=== PATIENT | female | born 1975 | race American Indian/Alaskan Native ===

== ENCOUNTER 2016-06-22 13:11 | Emergency (ER) | payer BC, OTHER ==
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
[2016-06-22] MEDS ORDERED: MOTRIN PO ONE (20:03)
[2016-06-22] MEDS ORDERED: FLEXERIL PO ONE (20:03)
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
[2016-06-22 21:06] VITALS: BP 111/74
== END 2016-06-22 20:28 | disposition home or self-care (01) ==
LOC: ED 13:11
DX: M79.1 Myalgia (principal); M54.2 Cervicalgia; F17.200 Nicotine dependence, unspecified, uncomplicated; V43.52XA Car driver injured in collision with other type car in traffic accident, initial encounter; Y93.9 Activity, unspecified; Y99.9 Unspecified external cause status; Y92.410 Unspecified street and highway as the place of occurrence of the external cause
CPT/HCPCS: 99283

== ENCOUNTER 2017-06-02 16:09 | Emergency (ER) | payer MEDICAID, OTHER ==
[2017-06-02 19:25] LABS: Bilirubin,Urine NEG (Negative); Blood,Urine NEG (Negative); Color,Urine Yellow (Yellow); Protein,Urine <15 mg/dL mg/dL (Negative); Urobilinogen,Urine < 2.0 mg/dL (<2.0)
--- NOTE | 2017-06-02 21:38 | Emergency Department Report ---
Chief Complaint: Abdominal Pain Stated Complaint: ABDOMINAL PAINS - HPI History of Present Illness: 42-year-old female presents with a 3 to four-day history of lower abdominal discomfort. His associated with some vaginal discharge. She has a past medical history of herpes simplex and has had a previous appendectomy. No treatment attempted. No fever, vaginal bleeding, dysuria, nausea, vomiting. No recent travel or sick contacts at home. Asking for antiviral treatments for her herpes simplex. - ROS Review of Systems: Positive for abdominal pain and vaginal discharge Negative for fever, dysuria, vaginal bleeding, back pain, nausea, vomiting, chest pain or shortness of breath - Exam Vital Signs: Vital Signs 06/02/17 16:33 Temperature 98.4 F Pulse Rate 76 Respiratory 16 Rate Blood Pressure 131/81 O2 Sat by Pulse 100 Oximetry MSE screening note: Focused history and physical exam performed. Due to findings the following was ordered: I have ordered a CBC, CMP, urinalysis, urine and abdominal x-ray. She will be seen by the mid-level provider and will remain on the fast track side for now. ED Disposition for MSE Condition: Stable Instructions: Abdominal Pain (ED)
[2017-06-02 21:48] VITALS: BP 128/56
[2017-06-02 21:52] LABS: Eosinophils # (Auto) 0.1 K/mm3 (0.0-0.4); Eosinophils % (Auto) 3.2 % (0.0-4.3); Hematocrit 33.6 % (30.3-42.9); Hemoglobin 10.6 gm/dl (10.1-14.3); Lymphocytes # (Auto) 1.2 K/mm3 (1.2-5.4); Lymphocytes % (Auto) 36.9 % (13.4-35.0); Mean Corpuscular HGB Conc 32 % (30-34); Mean Corpuscular Hemoglobin 26 pg (28-32); Mean Corpuscular Volume 83 fl (79-97); Monocytes # (Auto) 0.4 K/mm3 (0.0-0.8); Monocytes % (Auto) 12.9 % (0.0-7.3); Platelet Count 223 K/mm3 (140-440); Red Blood Count 4.06 M/mm3 (3.65-5.03); Red Cell Distribution Width 15.7 % (13.2-15.2)
[2017-06-02 22:09] LABS: Alanine Aminotransferase 10 units/L (7-56); Albumin 4.6 g/dL (3.9-5); BUN/Creatinine Ratio 6; Blood Urea Nitrogen 3 mg/dL (7-17); Calcium 9.4 mg/dL (8.4-10.2); Hemolysis Index 21
--- NOTE | 2017-06-02 22:16 | Emergency Department Report ---
ED Abdominal Pain HPI - General Chief Complaint: Abdominal Pain Stated Complaint: ABDOMINAL PAINS Time Seen by Provider: 06/02/17 22:14 Source: patient Mode of arrival: Ambulatory Limitations: No Limitations - History of Present Illness Initial Comments: Patient reports that she did have an abdominal cramps pointing to her periumbilical area. Patient reports that she was having pain in triage at her pelvic area. She said the pain is around her navel and describes pain as crampy and 5 out of 10. Patient states she is currently on her menses. She says she has not a bowel movement for 3 days and this is her regular pattern and she thinks she is constipated. Denies any nausea or vomiting. Denies any fever or chills. Denies any urinary burning frequency or urgency. Denies any back pain. Denies any chest pain or shortness of breath. [id number] pain medication did not help patient reports that she is eating okay and tolerating liquids okay. Abdominal cramping comes and goes. MD Complaint: abdominal pain Onset/Timin -: days(s) Location: periumbilical Radiation: none Migration to: no migration Severity: moderate Severity scale (0 -10): 5 Quality: cramping Consistency: intermittent Improves With: nothing Worsens With: nothing Context: other (constipation) Associated Symptoms: constipation. denies: nausea, vomiting, diarrhea, fever, chills, dysuria, hematemesis, hematochezia, melena, hematuria, anorexia, syncope Treatments Prior to Arrival: other ([id number] pain medication) - Related Data Previous Rx's Medication Instructions Recorded Last Taken Type Amoxicillin [Trimox CAP] 500 mg PO Q8H #30 capsule 12/08/[address] [Voltaren Dr] 75 mg PO Q12H #30 tablet 12/08/14 Unknown Rx traMADol [Ultram 50 MG tab] 50 mg PO Q6HR PRN #20 tablet 12/08/14 Unknown Rx Ketorolac [Toradol] 10 mg PO Q6H PRN #20 tablet 01/11/16 Unknown Rx Methocarbamol [Robaxin TAB] 1,500 mg PO TID PRN #30 tab 01/11/16 Unknown Rx Cyclobenzaprine [Flexeril] 10 mg PO TID PRN #24 tablet 06/22/16 Unknown Rx Ibuprofen [Motrin] 800 mg PO Q8HR PRN #30 tablet 06/22/16 Unknown Rx Magnesium Citrate [Citrate of 300 ml PO ONCE 1 Days #1 bottle 06/02/17 Unknown Rx Magnesia] Sodium Phosphate,[place]-Dibasic 118 ml RC ONCE 1 Days #1 enema 06/02/17 Unknown Rx [Fleet Enema] Allergies Allergy/AdvReac Type Severity Reaction Status Date / Time No Known Allergies Allergy Verified 12/08/14 08:35 ED Review of Systems ROS: Stated complaint: ABDOMINAL PAINS Other details as noted in HPI Comment: All other systems reviewed and negative Constitutional: no symptoms reported Eyes: denies: eye pain, eye discharge, vision change ENT: denies: ear pain, throat pain Respiratory: no symptoms reported Cardiovascular: denies: chest pain, palpitations, dyspnea on exertion, orthopnea , edema, syncope, paroxysmal nocturnal dyspnea Gastrointestinal: abdominal pain, constipation. denies: nausea, vomiting, diarrhea, hematemesis, melena, hematochezia Genitourinary: denies: urgency, dysuria, frequency, hematuria, discharge, abnormal menses, dyspareunia Musculoskeletal: denies: back pain, joint swelling, arthralgia, myalgia Skin: denies: rash Neurological: denies: headache, weakness, numbness, paresthesias, confusion, abnormal gait, vertigo ED Past Medical Hx - Past Medical History Previous Medical History?: No - Surgical History Past Surgical History?: Yes Hx Appendectomy: Yes - Family History Family history: hypertension - Social History Smoking Status: Current Every Day Smoker Substance Use Type: None - Medications Home Medications: Home Medications Medication Instructions Recorded Confirmed Last Taken Type Amoxicillin [Trimox CAP] 500 mg PO Q8H #30 capsule 12/08/[address] [Voltaren Dr] 75 mg PO Q12H #30 tablet 12/08/14 Unknown Rx traMADol [Ultram 50 MG tab] 50 mg PO Q6HR PRN #20 tablet 12/08/14 Unknown Rx Ketorolac [Toradol] 10 mg PO Q6H PRN #20 tablet 01/11/16 Unknown Rx Methocarbamol [Robaxin TAB] 1,500 mg PO TID PRN #30 tab 01/11/16 Unknown Rx Cyclobenzaprine [Flexeril] 10 mg PO TID PRN #24 tablet 06/22/16 Unknown Rx Ibuprofen [Motrin] 800 mg PO Q8HR PRN #30 tablet 06/22/16 Unknown Rx Magnesium Citrate [Citrate of 300 ml PO ONCE 1 Days #1 bottle 06/02/17 Unknown Rx Magnesia] Sodium Phosphate,[place]-Dibasic 118 ml RC ONCE 1 Days #1 enema 06/02/17 Unknown Rx [Fleet Enema] ED Physical Exam - General Limitations: No Limitations General appearance: alert, in no apparent distress - Head Head exam: Present: atraumatic, normocephalic, normal inspection - Eye Eye exam: Present: normal appearance, PERRL, EOMI Pupils: Present: normal accommodation - ENT ENT exam: Present: normal exam, normal orophraynx, mucous membranes moist - Neck Neck exam: Present: normal inspection, full ROM, other (no C-spine tenderness). Absent: tenderness, meningismus, lymphadenopathy, thyromegaly - Respiratory Respiratory exam: Present: normal lung sounds bilaterally. Absent: respiratory distress, chest wall tenderness - Cardiovascular Cardiovascular Exam: Present: regular rate, normal rhythm, normal heart sounds. Absent: systolic murmur, diastolic murmur - GI/Abdominal GI/Abdominal exam: Present: soft, distended (bloated), normal bowel sounds. Absent: tenderness, guarding, rebound, rigid, organomegaly, mass, bruit, pulsatile mass, hernia - Extremities Exam Extremities exam: Present: normal inspection, full ROM, normal capillary refill , other (no clubbing, cyanosis or edema. +2 pulses + extremities and no neurovascular compromise). Absent: tenderness, pedal edema, joint swelling, calf tenderness - Back Exam Back exam: Present: normal inspection, full ROM, other (ambulates without any difficulties). Absent: tenderness, CVA tenderness (R), CVA tenderness (L), muscle spasm, paraspinal tenderness, vertebral tenderness, rash noted - Neurological Exam Neurological exam: Present: alert, oriented X3, normal gait, reflexes normal. Absent: motor sensory deficit - Psychiatric Psychiatric exam: Present: normal affect, normal mood - Skin Skin exam: Present: warm, dry, intact, normal color. Absent: rash ED Course Vital Signs 06/02/17 06/02/17 16:33 21:44 Temperature 98.4 F 98.2 F Pulse Rate 76 68 Respiratory 16 16 Rate Blood Pressure 131/81 128/56 O2 Sat by Pulse 100 100 Oximetry - Reevaluation(s) Reevaluation #1: 06/02/17 22:31 Patient is stable. Tender to palpate the periumbilical area. Lab work is stable. Await in urine hCG and KUB. Reevaluation #2: 06/02/17 23:49 Patient's stable. She has no abdominal pain at present. ED Medical Decision Making - Lab Data Result diagrams: 06/02/17 21:49 06/02/17 21:49 Lab Results 06/02/17 06/02/17 06/02/17 Range/Units 21:36 21:49 21:49 WBC 3.4 L (4.5-11.0) K/mm3 RBC 4.06 (3.65-5.03) M/mm3 Hgb 10.6 (10.1-14.3) gm/dl Hct 33.6 (30.3-42.9) % MCV 83 (79-97) fl MCH 26 L (28-32) pg MCHC 32 (30-34) % RDW 15.7 H (13.2-15.2) % Plt Count 223 (140-440) K/mm3 Lymph % (Auto) 36.9 H (13.4-35.0) % [place] % (Auto) 12.9 H (0.0-7.3) % Eos % (Auto) 3.2 (0.0-4.3) % Baso % (Auto) 1.0 (0.0-1.8) % Lymph # 1.2 (1.2-5.4) K/mm3 [place] # 0.4 (0.0-0.8) K/mm3 Eos # 0.1 (0.0-0.4) K/mm3 Baso # 0.0 (0.0-0.1) K/mm3 Seg Neutrophils % 46.0 (40.0-70.0) % Seg Neutrophils # 1.5 L (1.8-7.7) K/mm3 Sodium 137 (137-145) mmol/L Potassium 4.0 (3.6-5.0) mmol/L Chloride 98.9 (98-107) mmol/L Carbon Dioxide 26 (22-30) mmol/L Anion Gap 16 mmol/L BUN 3 L (7-17) mg/dL Creatinine 0.5 L (0.7-1.2) mg/dL Estimated GFR > 60 ml/min BUN/Creatinine Ratio 6 % Glucose 81 (65-100) mg/dL Calcium 9.4 (8.4-10.2) mg/dL Total Bilirubin 0.60 (0.1-1.2) mg/dL AST 21 (5-40) units/L ALT 10 (7-56) units/L Alkaline Phosphatase 69 (35-129) units/L Total Protein 8.1 (6.3-8.2) g/dL Albumin 4.6 (3.9-5) g/dL Albumin/Globulin Ratio 1.3 % Lipase (13-60) units/L Urine Color (Yellow) Urine Turbidity (Clear) Urine pH (5.0-7.0) Ur Specific [place] (1.003-1.030) Urine Protein (Negative) mg/dL Urine Glucose (UA) (Negative) mg/dL Urine Ketones (Negative) mg/dL Urine Blood (Negative) Urine Nitrite (Negative) Urine Bilirubin (Negative) Urine Urobilinogen (<2.0) mg/dL Ur Leukocyte Esterase (Negative) Urine WBC (Auto) (0.0-6.0) /HPF Urine RBC (Auto) (0.0-6.0) /HPF U Epithel Cells (Auto) (0-13.0) /HPF Urine HCG, Qual Negative (Negative) 06/02/17 06/02/17 Range/Units Unknown Unknown WBC (4.5-11.0) K/mm3 RBC (3.65-5.03) M/mm3 Hgb (10.1-14.3) gm/dl Hct (30.3-42.9) % MCV (79-97) fl MCH (28-32) pg MCHC (30-34) % RDW (13.2-15.2) % Plt Count (140-440) K/mm3 Lymph % (Auto) (13.4-35.0) % [place] % (Auto) (0.0-7.3) % Eos % (Auto) (0.0-4.3) % Baso % (Auto) (0.0-1.8) % Lymph # (1.2-5.4) K/mm3 [place] # (0.0-0.8) K/mm3 Eos # (0.0-0.4) K/mm3 Baso # (0.0-0.1) K/mm3 Seg Neutrophils % (40.0-70.0) % Seg Neutrophils # (1.8-7.7) K/mm3 Sodium (137-145) mmol/L Potassium (3.6-5.0) mmol/L Chloride (98-107) mmol/L Carbon Dioxide (22-30) mmol/L Anion Gap mmol/L BUN (7-17) mg/dL Creatinine (0.7-1.2) mg/dL Estimated GFR ml/min BUN/Creatinine Ratio % Glucose (65-100) mg/dL Calcium (8.4-10.2) mg/dL Total Bilirubin (0.1-1.2) mg/dL AST (5-40) units/L ALT (7-56) units/L Alkaline Phosphatase (35-129) units/L Total Protein (6.3-8.2) g/dL Albumin (3.9-5) g/dL Albumin/Globulin Ratio % Lipase 27 (13-60) units/L Urine Color Yellow (Yellow) Urine Turbidity Clear (Clear) Urine pH 6.0 (5.0-7.0) Ur Specific [place] 1.004 (1.003-1.030) Urine Protein <15 mg/dl (Negative) mg/dL Urine Glucose (UA) Neg (Negative) mg/dL Urine Ketones Neg (Negative) mg/dL Urine Blood Neg (Negative) Urine Nitrite Neg (Negative) Urine Bilirubin Neg (Negative) Urine Urobilinogen < 2.0 (<2.0) mg/dL Ur Leukocyte Esterase Neg (Negative) Urine WBC (Auto) 1.0 (0.0-6.0) /HPF Urine RBC (Auto) 3.0 (0.0-6.0) /HPF U Epithel Cells (Auto) 2.0 (0-13.0) /HPF Urine HCG, Qual (Negative) - Radiology Data Radiology results: report reviewed Abdominal x-ray revealed nonspecific intestinal gas pattern. Bowel gas pattern is distributed predominantly in the nondistended colon and rectum. There is mild degree of residual stool. No pneumoperitoneum. No masses or calcifications seen. - Medical Decision Making ED course: Patient here complaining of abdominal cramp to her periumbilical area 3 days. She says she had not a bowel movement in 3 days. Patient said her diet is not very good she doesn't eat a lot of fruits and veggies and she also reports that she does not drink a lot of water. She says she does not have a bowel movement daily but when she goes she goes a lot. She said the last time she went was on 05/30/2017 and stool was normal and was very large. Patient has a history of appendectomy. She is afebrile and lab works are stable. test is negative urinalysis is normal. KUB without any obstruction and patient with intestinal gas that is distributed predominantly in the nondistended colon and rectum. Mild degree of residual stool. I discussed lab results and x-ray results patient and she was understanding. I also discussed fiber diet and that she needs to eat more fruits and veggies and increase her water intake. Patient discharged home in stable condition with prescription for Fleet enema and mag citrate. I discussed the fascial need to follow up with a panel raiser operator to manage chronic constipation. Patient says she does have a primary care physician and I told her that she should also follow up with primary care physician. Critical care attestation.: If time is entered above; I have spent that time in minutes in the direct care of this critically ill patient, excluding procedure time. ED Disposition Clinical Impression: Constipation Qualifiers: Constipation type: unspecified constipation type Qualified Code(s): K59.00 - Constipation, unspecified Abdominal pain Qualifiers: Abdominal location: periumbilical Qualified Code(s): R10.33 - Periumbilical pain Disposition: - TO HOME OR SELFCARE Is pt being admited?: No Does the pt Need Aspirin: No Condition: Stable Instructions: Abdominal Pain (ED), Constipation (ED), High Fiber Diet (ED) Additional Instructions: Please see discharge instruction for high fiber diet and constipation Increase her fluid intake to 23 L of water per day. Please see referral to panel raiser operator for chronic constipation Prescriptions: Magnesium Citrate [Citrate of Magnesia] 300 ml PO ONCE 1 Days #1 bottle Sodium Phosphate,[place]-Dibasic [Fleet Enema] 118 ml RC ONCE 1 Days #1 enema Referrals: Your, primary care physician [Other] - 06/04/17 [facility] [Provider Group] - 2-3 Days Forms: Work/School Release Form(ED)
[2017-06-02 22:43] LABS: HCG Qualitative,Urine Negative (Negative)
--- NOTE | 2017-06-02 23:29 | XRay Report ---
FINAL REPORT PROCEDURE: XR ABDOMEN 2V TECHNIQUE: Abdominal series, including supine and upright AP views. HISTORY: Abd pain COMPARISON: No prior studies are available for comparison. FINDINGS: Masses or calcifications:None . Bony structures:No significant abnormality . Pneumoperitoneum:None . Other:No significant findings . Bowel gas pattern:Intestinal gas is distributed predominantly in nondistended colon and rectum. There is mild degree residual stool.. IMPRESSION: Nonspecific intestinal gas pattern..
== END 2017-06-03 00:10 | disposition home or self-care (01) ==
LOC: ED 16:09
DX: K59.00 Constipation, unspecified (principal); R10.33 Periumbilical pain; F17.200 Nicotine dependence, unspecified, uncomplicated; Z90.49 Acquired absence of other specified parts of digestive tract
CPT/HCPCS: 36415; 74019; 80053; 81001; 81025; 83690; 85025; 99284